=== PATIENT | female | born 1985 | race Caucasian/White ===

== ENCOUNTER 2016-05-28 21:26 | Day surgery (SDC) | payer OTHER, SELFPAY ==
[~2016-05-28] VITALS: Ht 172.7 cm; Wt 82.5 kg
--- NOTE | ~2016-05-28 | OR ---
PATIENT'S NAME: GUANACO [facility] AGE: 31 Y [address] ROOM: [place] [address] LOCATION: GPED ADMIT DATE: 05/29/2016 OR/Procedure Report DISCHARGE DATE: FAMILY PHYSICIAN: NELLIE UNDERWOOD ATTENDING PHYSICIAN: Reji Angeles SURGEON: Reji Angeles MD ORGANIC LAB WORKER: DATE OF PROCEDURE: 05/29/2016 PREOPERATIVE DIAGNOSIS: Retrocecal acute appendicitis. POSTOPERATIVE DIAGNOSIS: Retrocecal acute appendicitis. PROCEDURES PERFORMED: Laparoscopic appendectomy. ANESTHESIA: General endotracheal. ESTIMATED BLOOD LOSS: 10 mL. SPECIMEN: Appendix. REASON FOR PROCEDURE: The patient is a 31-year-old female, who presented to the Emergency Room with a couple of days history of progressive right-sided abdominal pain. She had no white count or fever, but a CT scan was suggestive of appendicitis. We discussed the risks and benefits of surgery, and she elected to proceed with appendectomy. FINDINGS: The patient did have a markedly swollen and inflamed retrocecal appendix. PROCEDURE IN DETAIL: The patient was taken to the Operating Suite and placed in the supine position. After general endotracheal anesthesia was obtained, the abdomen was prepped with ChloraPrep and sterilely draped. Marcaine was infiltrated into the incision sites. A 1-cm infraumbilical incision was made. The fascia was grasped and elevated. A Veress needle was then used to obtain a pneumoperitoneum. A 5-mm trocar was then passed across the abdominal wall. Next, a 5-mm left lower quadrant and 12-mm right lower quadrant trocar were placed under direct visualization. The appendix could not at first be identified, but as we divided some peritoneal attachments along the cecum and mobilized the cecum, we were able to see the appendix sitting in the right gutter. It was markedly swollen and inflamed, but no evidence of perforation or necrosis. We were able to divide across the PATIENT'S NAME: GUANACO [facility] AGE: 31 Y [address] ROOM: [place] [address] LOCATION: GPED ADMIT DATE: 05/29/2016 OR/Procedure Report DISCHARGE DATE: FAMILY PHYSICIAN: NELLIE UNDERWOOD ATTENDING PHYSICIAN: Reji Angeles base of the appendix, and then divided this with the endoscopic STEFANI stapler. Another load was fired across the mesoappendix. Some filmy adhesions were divided with cautery. The appendix was then brought out through the right lower quadrant after having been placed in an Endo retrieval bag. The right side of the abdomen was then irrigated and all irrigation was removed. The staple line appeared to be intact. There were no signs of any ongoing bleeding. The trocars were all withdrawn, and the pneumoperitoneum was evacuated. WOUND CLOSURE: The fascia in the right lower quadrant was closed with a Vicryl suture. The skin incisions were closed with subcuticular Monocryl. Benzoin, Steri-Strips, and gauze dressings were applied. POST-PROCEDURE PLAN: The patient will be sent to Recovery, and then up to the room. We will gradually advance her diet as tolerated. She will receive pain medicines as necessary. MD JAYE DIAZ/gabby /[id number] d: 05/29/16 0426 t: 05/30/16 1225, OPERATIVE SUMMARY
--- NOTE | ~2016-05-28 | ER ---
PATIENT'S NAME: GUANACO KIM [facility] AGE: 31 Y [address] ROOM: [place] [address] LOCATION: GPED ADMIT DATE: 05/29/2016 ER/Outpatient Report DISCHARGE DATE: FAMILY PHYSICIAN: NELLIE UNDERWOOD ATTENDING PHYSICIAN: Reji Angeles Time of Evaluation: 2215 hours. HISTORY OF PRESENT ILLNESS: The patient is a 31-year-old female who presents with right lower quadrant pain. She said she started to have symptoms about 2 to 3 days ago. Symptoms started as pain, and then vomiting, some loose stools. The pain has gotten worse throughout the day. The patient describes the pain as a pressure, fullness. MEDICAL ALLERGIES: Topamax. CURRENT MEDICATIONS: 1. Xanax. 2. Naprosyn. 3. Propranolol. 4. Trintellix. MEDICAL HISTORY: Includes migraines, history of tachycardia, depression, anxiety. SURGERIES: Include cholecystectomy and tonsillectomy. SOCIAL HISTORY: A smoker half pack a day. Alcohol, just occasionally. REVIEW OF SYSTEMS: GENERAL: General health good up until the last 2 to 3 days. HEENT: No recent migraines or sore throat. RESPIRATORY: No shortness of breath or cough. CARDIOVASCULAR: History of tachycardia. No chest pain. GASTROINTESTINAL: Includes right lower quadrant pain, started 2 to 3 days ago. She has had some loose stools, nausea, vomiting. GENITOURINARY: No burning, frequency, or vaginal discharge. PHYSICAL EXAMINATION: VITAL SIGNS: Temperature is 97.8, her respiratory rate 16, pulse 106, blood pressure 121/68. PATIENT'S NAME: GUANACO KIM [facility] AGE: 31 Y [address] ROOM: [place] [id number] LOCATION: GPED ADMIT DATE: 05/29/2016 ER/Outpatient Report DISCHARGE DATE: FAMILY PHYSICIAN: NELLIE UNDERWOOD ATTENDING PHYSICIAN: Reji Angeles GENERAL APPEARANCE: Alert. No obvious distress. HEENT: Sclerae are clear. Buccal membranes moist. Teeth good repair. NECK: Supple. No adenopathy. LUNGS: Clear. ABDOMEN: Fairly localized tenderness in the right lower quadrant. No significant rebound. Bowel sounds are somewhat quiet. LABORATORY DATA AND X-RAYS: Her test was negative. White count was 7.4, hemoglobin 13, her ANC was 4.0. CMS: Potassium slightly low at 3.4. Urine: Yellow, clear, negative nitrites, did have some presence of leukocytes and blood. Her micro showed 2-5 white cells, 2-5 red cells, she had 5-10 epi. Bacteria were present, probably contamination. CT of abdomen and pelvis with IV contrast did show acute appendicitis with dilated appendix of over 10 mm. ASSESSMENT: Acute appendicitis. PLAN: The patient is referred to Dr. Angeles, general surgeon. ASIM BOYKIN FOR MD SINDY SALINAS/gabby /[id number] d: 05/29/16251 t: 05/31/16 181, OUTPATIENT REPORT
--- NOTE | ~2016-05-28 | HP ---
PATIENT'S NAME: GUANACO KIM [facility] AGE: 31 Y [address] ROOM: [place] [address] LOCATION: GPED ADMIT DATE: 05/29/2016 History & Physical DISCHARGE DATE: FAMILY PHYSICIAN: NELLIE UNDERWOOD ATTENDING PHYSICIAN: Reji Angeles DATE OF SERVICE: 05/29/2016 CHIEF COMPLAINT: Abdominal pain. HISTORY OF PRESENT ILLNESS: The patient is a 31-year-old female, who began having some abdominal bloating and discomfort on . This was more in the mid epigastric area. She also had nausea and some vomiting. The patient did not have fevers or chills. The pain was fairly constant in nature. Yesterday, she had a little diarrhea, but noticed the pain seem to be settling into her right side, steadily got more intense and it was aggravated by movement. She does report occasional similar pains in the past, but nothing this severe. She has no history of Crohn disease or inflammatory bowel disease. She has had a previous cholecystectomy. The patient came into the emergency room to be evaluated. She had a normal temperature and normal white count, but because of her discomfort a CT scan was obtained. This showed evidence of an early retrocecal acute appendicitis. No other abnormalities were seen. PAST MEDICAL HISTORY: She has a history of migraines. MEDICATIONS: Include: 1. Trintellix. 2. Xanax. 3. Naproxen. 4. Propranolol. ALLERGIES: TOPAMAX. PAST SURGICAL HISTORY: Include: 1. Cholecystectomy. 2. Tonsillectomy. SOCIAL HISTORY: The patient does smoke half pack per day. She drinks alcohol rarely. PATIENT'S NAME: GUANACO KIM [facility] AGE: 31 Y [address] ROOM: [place] [address] LOCATION: GPED ADMIT DATE: 05/29/2016 History & Physical DISCHARGE DATE: FAMILY PHYSICIAN: NELLIE UNDERWOOD ATTENDING PHYSICIAN: Reji Angeles FAMILY HISTORY: Noncontributory. REVIEW OF SYSTEMS: The patient does have a history of chronic migraines, but this has been helped with her propranolol. She has been told she had a tachycardia issue in the past, but this was a pretty isolated syndrome and has not caused issues since then. She does have a history of some depression and anxiety. PHYSICAL EXAMINATION: GENERAL: The patient is a healthy, well-nourished young female. She is in no obvious distress or discomfort. She is alert and oriented. VITAL SIGNS: Blood pressure 121/68, pulse 106, respirations 16, temperature 97.8, saturations are 97% on room air. HEENT: Normocephalic, atraumatic. Pupils are equal. There is no scleral icterus. External ears, nose, and eyelids are unremarkable. NECK: There is no masses or adenopathy. Trachea is midline. RESPIRATIONS: Breathing is nonlabored. Lungs are clear to auscultation bilaterally. HEART: Regular rate and rhythm. ABDOMEN: Soft. It is not distended. There are good bowel sounds. She has moderate tenderness in the right lower quadrant. Pressure in the left lower quadrant did reproduce some mild discomfort. No obvious rebound or guarding. No obvious hernias. EXTREMITIES: No peripheral edema. No cyanosis or clubbing. No obvious deformities. She moves all 4 extremities well. ASSESSMENT: This is a 31-year-old female with acute appendicitis by CT scan. We discussed the risks and benefits of surgery. PLAN: We will plan on proceeding with laparoscopic appendectomy. The patient received preoperative IV antibiotics. MD JAYE DIAZ/gabby /[id number] D: [id number] T: [id number] HISTORY & PHYSICAL
[2016-05-28 22:40] LABS: BASOPHIL % 0.4 %; EOSINOPHIL # 0.1 K/uL (0.0-0.5); EOSINOPHIL % 1.8 %; HEMATOCRIT 36.5 % (33.0-46.0); IMMATURE GRANULOCYTE % 0.1 %; LYMPHOCYTE # 2.8 K/uL (0.8-4.0); LYMPHOCYTE % 37.4 %; MCH 33.9 pg (27.0-34.0); MCHC 35.6 gm/dL (32.0-36.5); MCV 95.3 fl (83.0-98.0); MONOCYTE # 0.5 K/uL (0.0-1.0); MONOCYTE % 6.9 %; MPV 9.4 fl (9.4-12.4); NEUTROPHIL % 53.4 %; NRBC % 0 /100WBC (0-0.00); PLATELET COUNT 228 K/uL (150-450); RBC 3.83 M/uL (3.50-5.50); RDW-CV 11.8 % (11.9-14.6); WBC 7.4 K/uL (4.0-11.0)
[2016-05-28 22:43] LABS: BILIRUBIN URINE NEGATIVE (NEGATIVE); BLOOD URINE 25 /UL (NEGATIVE); GLUCOSE URINE NEGATIVE (NEGATIVE); KETONE URINE 5 mg/dL (NEGATIVE); LEUKOCYTES URINE 25 /UL (NEGATIVE); NITRITE URINE NEGATIVE (NEGATIVE); PROTEIN URINE 15 mg/dL (NEGATIVE); UROBILINOGEN URINE 4 mg/dL (NORMAL)
[2016-05-28 22:44] LABS: COLOR URINE YELLOW (YELLOW); TURBIDITY URINE CLEAR (CLEAR)
[2016-05-28 22:54] LABS: BACTERIA URINE MODERATE (NEGATIVE); CRYSTALS URINE CALCIUM OXALATE (NEGATIVE)
[2016-05-28 22:55] LABS: MUCUS URINE 3+ (NEGATIVE)
[2016-05-28 22:59] LABS: ALK PHOS 51 IU/L (33-138); ALT 18 IU/L (12-78); ANION GAP 13.4 (10.0-19.0); AST 18 IU/L (10-40); BLOOD UREA NITROGEN 15 mg/dL (6-24); CALCIUM 8.4 mg/dL (8.5-10.5); CHLORIDE 109 mMol/L (96-110); CO2 23 mMol/L (22-32); CREATININE 0.7 mg/dL (0.5-1.1); ESTIMATED GFR (MDRD EQUATION) > 60; POTASSIUM 3.4 mMol/L (3.7-5.1); SODIUM 142 mMol/L (135-145); TOTAL BILIRUBIN 0.5 mg/dL (0.0-1.5); TOTAL PROTEIN 7.4 g/dL (6.0-8.4)
[2016-05-29] MEDS ORDERED: TRINTELLIX 20 MG PO (04:47)
[2016-05-29] MEDS ORDERED: NAPROXEN500 MG PO (04:49)
[2016-05-29] MEDS ORDERED: INDERAL10 MG PO (04:49)
[2016-05-29] MEDS ORDERED: XANAX0.25 MG PO (04:50)
--- NOTE | 2016-05-29 06:13 | NUR ---
Significant Event: THIS PATIENT WAS ADMITTED TO PEDS POST OP LAP APPY. ALERT, DENIES NEED FOR MEDICATION. DRESSING TO UMBILICUS SATURATED ON TOP HALF OF DRESSING. THE OTHER TWO SITES ARE D/I. IV INFUSING IN HAND. ORIENTED TO ROOM AND SURROUNDINGS. TOLERATED PO FLUIDS WELL. Follow up: AMBULATE AND DISMISS TO HOME
[2016-05-29] MEDS ORDERED: PHENERGAN25 M1 PO (10:19)
[2016-05-29] MEDS ORDERED: NORCO 5-325 TA1 EACH PO (15:27)
== END 2016-05-29 16:10 | disposition disaster alternative care site (69) ==
LOC: GMED 21:26 → GPED 05-29 02:20 → GMED 05-29 02:20 → GSDC 05-29 02:20 → GPED 05-29 02:20 → GSDC 05-29 16:10
PROVIDERS: Emergency Medicine
PROC: 0DTJ4ZZ Resection of Appendix, Percutaneous Endoscopic Approach (ICD-10-PCS; principal; 2016-05-29)
DX: K35.80 Unspecified acute appendicitis (principal); G43.909 Migraine, unspecified, not intractable, without status migrainosus; F17.210 Nicotine dependence, cigarettes, uncomplicated; Z90.49 Acquired absence of other specified parts of digestive tract; Z98.890 Other specified postprocedural states; Z79.899 Other long term (current) drug therapy
CPT/HCPCS: J1335; J3010; J7030; Q9967